=== PATIENT | female | born 1980 | race Caucasian/White ===

== ENCOUNTER 2018-07-05 20:47 | Emergency (ER) | payer SELFPAY ==
[2018-07-05 21:13] VITALS: BMI 24.7
[2018-07-05 21:15] VITALS: RESP 18
--- NOTE | 2018-07-05 22:04 | ED PDOC ---
Arrival/HPI - General Chief Complaint: Lower Extremity Problem/Injury Time Seen by Provider: 07/05/18 21:27 Historian: Patient - History of Present Illness Narrative History of Present Illness (Text): 07/05/18 21:27 Alison Meier is a 38 year old female, with no significant past medical history, who presents to Emergency department complaining of burning left foot pain radiating to her left ankle. Patient notes she recently sprained her left ankle and has been ambulating on it. Patient states she took Ibuprofen with no significant relief. Patient denies weakness/numbness/tingling in the extremity, decreased range of motion, chest pain, shortness of breath, other trauma/injury, or any other complaint. Time/Duration: < week (2 days) Symptom Onset: Gradual Symptom Course: Unchanged Quality: Burning Activities at Onset: Light Context: Walking, Home Past Medical History - Provider Review Nursing Documentation Reviewed: Yes - Reproductive Currently : No - Psychiatric Hx Substance Use: No - Anesthesia Hx Anesthesia: No Family/Social History - Physician Review Nursing Documentation Reviewed: Yes Family/Social History: Unknown Family HX Smoking Status: Never Smoked Hx Alcohol Use: No Hx Substance Use: No Allergies/Home Meds Allergies/Adverse Reactions: Allergies No Known Allergies Allergy (Verified 07/05/18 21:12) Review of Systems - Physician Review All systems were reviewed & negative as marked: Yes - Review of Systems Constitutional: absent: Fevers, Night Sweats Respiratory: absent: SOB, Cough Gastrointestinal: absent: Abdominal Pain, Diarrhea, Nausea, Vomiting Genitourinary Female: absent: Dysuria Musculoskeletal: Arthralgias (+left foot pain). absent: Back Pain, Neck Pain Neurological: absent: Headache, Dizziness Physical Exam Vital Signs Reviewed: Yes Vital Signs Temp Pulse Resp BP Pulse Ox 07/05/18 21:15 98.3 F 70 18 102/63 99 Temperature: Afebrile Blood Pressure: Normal Pulse: Regular Respiratory Rate: Normal Appearance: Positive for: Well-Appearing, Non-Toxic, Comfortable Pain Distress: None Mental Status: Positive for: Alert and Oriented X 3 - Systems Exam Head: Present: Atraumatic, Normocephalic Pupils: Present: PERRL Extroacular Muscles: Present: EOMI Conjunctiva: Present: Normal Neck: Present: Normal Range of Motion Respiratory/Chest: Present: Clear to Auscultation, Good Air Exchange. No: Respiratory Distress, Accessory Muscle Use Cardiovascular: Present: Regular Rate and Rhythm, Normal S1, S2. No: Murmurs Upper Extremity: Present: Normal Inspection, Normal ROM. No: Cyanosis, Edema Lower Extremity: Present: Normal Inspection, NORMAL PULSES, Normal ROM, Neurovascularly Intact. No: Edema, CALF TENDERNESS, Jeri's Sign, Tenderness, Swelling Neurological: Present: GCS=15, CN II-XII Intact, Speech Normal, Motor Func Grossly Intact, Normal Sensory Function Skin: Present: Warm, Dry, Normal Color. No: Rashes Psychiatric: Present: Alert, Oriented x 3, Normal Insight, Normal Concentration Medical Decision Making ED Course and Treatment: 07/05/18 21:27 Impression: Patient is a 38 year old female c/o left foot/ankle pain x2 days. Plan: -- Left Ankle X-Ray -- Left Foot X-Ray -- Reassess and disposition Prior Visits: Notes and results from previous visits were reviewed. Progress Notes: 07/05/18 23:17 reviewed radiology, XR Left Ankle shows no acute processes, no fractures. XR Left Foot shows no acute processes, no fractures. - RAD Interpretation Radiology Orders: 07/05/18 21:31 ANKLE LEFT 3 VIEWS ROUTINE [RAD] Stat 07/05/18 21:37 FOOT LEFT 3 VIEWS ROUTINE [RAD] Stat Special Needs Child Caregiver: ED Physician - Scribe Statement The provider has reviewed the documentation as recorded by the MarieibAlen brunson with Kh[facility] All medical record entries made by the Scribe were at my direction and personally dictated by me. I have reviewed the chart and agree that the record accurately reflects my personal performance of the history, physical exam, medical decision making, and the department course for this patient. I have also personally directed, reviewed, and agree with the discharge instructions and disposition. Disposition/Present on Arrival - Present on Arrival Any Indicators Present on Arrival: No History of DVT/PE: No History of Uncontrolled Diabetes: No Urinary Catheter: No History of Decub. Ulcer: No History Surgical Site Infection Following: None - Disposition Have Diagnosis and Disposition been Completed?: Yes Diagnosis: Ankle pain, Ankle sprain Disposition: HOME/ ROUTINE Disposition Time: 23:24 Patient Plan: Discharge Condition: GOOD Discharge Instructions (ExitCare): Ankle Sprain (DC) Additional Instructions: Use air cast/take meds as prescribed/follow up in orthopedic clinic this week Prescriptions: Naproxen [Naprosyn Tab] 375 mg PO BID PRN #14 tab PRN Reason: Pain, Moderate (4-7) Referrals: [facility] [place] [Outside] - Follow up with primary Forms: [employer] (Welsh)
[2018-07-05] MEDS ORDERED: Naproxen 550 mg Tab PO ONE (23:29)
[2018-07-06 00:54] VITALS: BP 108/68; PULSE 74; TEMP 98.5; O2SAT 100
--- NOTE | 2018-07-06 09:47 | RAD ---
Date of service: 07/05/2018 PROCEDURE: Left Ankle Radiographs. HISTORY: Pain/injury COMPARISON: None available. FINDINGS: BONES: Bone alignment and mineralization are normal. There is no acute displaced fracture or bone destruction. JOINTS: Normal. Ankle mortise maintained. Talar dome intact SOFT TISSUES: Normal. OTHER FINDINGS: None. IMPRESSION: No acute fracture or dislocation.
--- NOTE | 2018-07-06 09:48 | RAD ---
Date of service: 07/05/2018 PROCEDURE: Left Foot Radiographs. HISTORY: pain COMPARISON: None. FINDINGS: BONES: Bone alignment and mineralization are normal. There is no acute displaced fracture or bone destruction. JOINTS: Normal. SOFT TISSUES: Normal. OTHER FINDINGS: None. IMPRESSION: No acute fracture or dislocation.
== END 2018-07-06 00:45 | disposition home or self-care (01) ==
LOC: ED 20:47
DX: S93.402A Sprain of unspecified ligament of left ankle, initial encounter (principal); X58.XXXA Exposure to other specified factors, initial encounter; Y93.01 Activity, walking, marching and hiking; Y92.009 Unspecified place in unspecified non-institutional (private) residence as the place of occurrence of the external cause